=== PATIENT | female | born 1990 | race Caucasian/White ===

== ENCOUNTER → 2023-10-05 13:30 | Outpatient (BNV) | payer MEDICARE, SELFPAY | PROVIDERS: Visit Provider Psychiatry & Neurology Psychiatry | DX: F60.3 Borderline personality disorder (principal); Z86.59 Personal history of other mental and behavioral disorders; F12.20 Cannabis dependence, uncomplicated; F10.10 Alcohol abuse, uncomplicated | CPT/HCPCS: 90792; 99213; 99499 ==

== ENCOUNTER 2023-10-09 13:30 | Outpatient (RCR) | payer MEDICARE, OTHER, SELFPAY ==
[2023-10-02 11:53] VITALS: BP 114/58; PULSE 80; TEMP 37.4
[2023-10-02 11:56] VITALS: BMI 32.4
--- NOTE | 2023-10-02 12:49 | PC.ADMIT ---
Patient is a 33 year old non-binary individual who uses they/them pronouns and goes by the name of, Trupti . Patient was referred to PHP by their PCP d/t increased mood regulation as they have been screaming at work along with punching self d/t feeling overwhelmed with outside stresses including financial stress as their mother recently lost her job. 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 Patient reports poor ADL's with difficulty brushing teeth and taking showers. They are currently taking KADEN from work. Patient is using Marijuana daily smoking 2 grams a day. They are currently drinking wine 2-3 glasses on the weekends. They have a history of detox in 2019 and DUI and license taken away at the time in 2016. Patient given education written and verbal on ETOH use along with short and jail effects and Marijuana use disorder. Patient is alert and oriented x4. They present with depressed mood and anxious/irritable affect. Appears restless and speech is loud at times. The are cooperative. They report they have not been on medications since January 2023. Patient has a history of being on Naltrexone, Duloxetime, Vraylar, and Hydroxyzine. Patient denied SI at present. Reports some self harming thoughts. Last self harmed last week by hitting their wrist. Explored things they could do besides harm self when experiencing strong emotions. Patient was given a copy of their safety plan and I reviewed this with them.
--- NOTE | 2023-10-02 16:11 | HO.PHP ---
Pt left [facility] group early, at roughly 10:50 am, so technical writer and editor checked in to assess how they were doing. Pt was found sitting in the addison tearful and visibly anxious. Pt stated the topic of values was difficult because they did not feel they had hope or found value in anything. Pt stated they have struggled with feeling like this for a long time and worry they will remain like this until I'm 50 . Pt reported feeling some hopelessness due to their current financial and housing situation. Pt was reasonable when supported and did report they want to improve and feel better. With prompting and redirecting pt was able to identify needing to give it more time at [facility] today is pt's first day, Stating they will try harder to engage in the activities despite feeling they will not work. Pt was able to identify goals to work on while at [facility] and coping skills to help with their anxiety and depressive thoughts in the moment. Pt appreciative to talk, returned to group after 25 minutes spent speaking with technical writer and editor.
--- NOTE | 2023-10-02 18:08 | P.HPPSP_ITS ---
HPI Date of Service: 10/02/23 Chief Complaint: bipolar,gender dysphoria,AUD,BPD,PTSD Sources of Information: patient interviewed, chart reviewed and crisis/core team assessment reviewed HPI Narrative: Patient prefers to go by Indigo and they/them pronouns. Patient is a 33 year old non-binary individual with history of anxiety, depression, mood instability, unspecified bipolar disorder, gender dysphoria, alcohol abuse and nursing home reliance on medical marijauna, who was referred to [facility] by crisis at the prompting of their PCP office. They report recent predicament involving family and financial stressors triggering acute distress which is exacerbating long standing issues with mood and behavioral dysregulation, poor stress tolerance in the past month. This has lead to worsening anxiety, mood instability, and an increase in the frequency of mental breakdowns where patient acts out impulsively in a destructive manner. They often engaging in self harming behaviors - punching wall or floor with fists, pounding my wrists and scratching at themselves. They deny this is done intentionally to harm themselves, but rather occurs spontaneously in the moment, due to feeling overwhelmed by high anxiety or strong emotions, or becoming too overstimulated by environmental stimuli or stressors. They report a history of central auditory processing disorder and ADHD diagnosis, received treatment continuously from early elementary school until age 22. They have continued to rely on accommodations to manage social and occupational challenges of navigating the work place. Past Psychiatric History: IP hospitalization in 2018 x 5 days in [facility] in [place], [place] Detox admissions in 2019 in [place], [place] Hx of suicidal behaviors, gestures, SIB (used to cut, in recent years more scratching skin Hx of SI both with and without plans Most recent medication regime included: duloxetine 90 mg, hydroxyzine 25 mg, Vraylar 3 mg, naltrexone 50 mg, IUD. They were last on medication in January 2023. Other trials include Ritalin, Concerta, Prozac and amitriptyline more remotely. Didn't like Lamictal. Therapist: [facility], last seen last month PCP: Dr. Mare Viera at [facility] CURRENT MEDICATIONS: none [facility] Medical History (Updated 10/09/23 @ 21:51 by Monica Stanley MD) Tears of meniscus and ACL of left knee Exercise-induced asthma Family History: Depression, anxiety in family. Younger brother with dissociation issues Father with severe depression Social History: [facility], parents provide financial support. They live in [place]. 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 Reportedly has held many jobs short term (usually <1year). More often she walks off the job because it's not a good fit , interpersonal problems with SVs or coworkers or working conditions or just gets bored Born in [place], [place]. Grew up in [place] with mom, dad younger brother and older half sibling Substance History: Cannabis use: microdosing medical marijuana, everyday, since 2013 about $100 q 2weeks, occasionally binges Alcohol use: 2-3 glasses/wk, occasional binges since age 18. At worse was drinking >100 drinks/wk. Denies black outs or withdrawal sx in the past, although once attended a 28-day detox DUI x1. Hallucinogen use: dappled on occasion, with psylocybin Nicotine use: ~ 1 cigarette/day with marijuana use caffeine use: minimal Trauma History: denies any hx of physical, sexual or emotional abuse, but identifies losing their virginity as a traumatic experience Diagnostics Vital Signs (24Hr): Vital Signs - 24 hr 10/02/23 11:53 Temperature 99.4 F Pulse Rate 80 Blood Pressure 114/58 L BMI result Body Mass Index 32.4 Meds/Allergies Meds Home Medications Medication Instructions Recorded Confirmed Type No Known Home Meds 10/02/23 10/02/23 History Allergies Allergies Allergy/AdvReac Type Severity Reaction Status Date / Time codeine AdvReac Gastrointestinal Verified 10/02/23 11:53 Upset Mental Status Exam Mental Status Exam Narrative: Alert, oriented, in no acute distress. Animated, hyperactive, cooperative, engaged. Eye contact maintained. Mood depressed, affect variable, elevated, bright, moments of incongruency.. Speech loud, normal rate without pressured speech. Thought process linear, scattered, otherwise coherent. Thought content related to stressors, transient hopelessness, endorses passive SI, conditional, without plan or intent. DEnies HI. No paranoia or delusional content elicited. No evidence of psychosis. Insight and judgment impaired. Telehealth Telehealth Location of provider rendering services: other (private office) Location of patient: other ([facility]) Patient Identification confirmed using: Name, : Yes Telehealth method: video Patient verbally consented to treatment: Yes Minutes spent on Phone/Video with Pt.: 30 Assessment & Plan Assessment & Plan (1) Mood disorder: Status: Acute Code(s): F39 - Unspecified mood [affective] disorder (2) Impulsive type emotionally unstable personality disorder: Status: Acute Code(s): F60.3 - Borderline personality disorder (3) History of attention deficit hyperactivity disorder (ADHD): Status: Acute Code(s): Z86.59 - Personal history of other mental and behavioral disorders (4) Other anxiety states: Status: Acute Code(s): F41.1 - Generalized anxiety disorder (5) Alcohol abuse: Status: Acute Code(s): F10.10 - Alcohol abuse, uncomplicated Assessment and Plan: intermittent binging (6) Cannabis dependence with current use: Status: Acute Code(s): F12.20 - Cannabis dependence, uncomplicated Plan Admit to [facility] patient not currently on any medication - hx of poor adherence will continue to explore ways to improve compliance routine lab work slip MassPat reviewed continue to monitor as per protocol Patient educated on: diagnosis, medication risk/benefits and substance abuse Informed Consent: understands Reason for continued partial hosp. stay Substantial Risk for: harm to self, inability to function, rapid decompensation and med/psych decompensation Certification I certify that partial hospital treatment is medically necessary due to the symptoms and problems resulting from the patient's mental illness and the failure to treat the patient at the partial hospital level of care would likely result in the patient requiring inpatient psychiatric care which could not be prevented at a less intensive level of care. Time Spent With Patient Time: Total time managing care of this patient today __60__ minutes.
[2023-10-03 14:29] LABS: Amphetamine Screen Urine Not Detected (Not Detect); Barbiturates, Urine Not Detected (Not Detect); Benzodiazepines Screen Urine Not Detected (Not Detect); Cannabinoid Screen Urine POSITIVE (Not Detect); Cocaine Screen Urine Not Detected (Not Detect); Opiate Screen Urine Not Detected (Not Detect); Phencyclidine Screen Urine Not Detected (Not Detect)
[2023-10-03 14:31] LABS: Fentanyl, urine Not Detected (Not Detect)
--- NOTE | 2023-10-03 16:42 | HO.PHP ---
At roughly 1:20 pt left group and asked to speak with staff 1:1, pt was distraught. Could not exactly identify specific feelings or reasons for shutting down . Pt made vague statement such as feeling sick and tired of being sick and tired . States they do not know why they are here at [facility], firmly stating it won't help. Pt states they feel they will get worse if they stay here because they are triggered when told like, things will get better , and other positive statements. Pt states they are triggered frequently and feel they can not sit through a group. Pt reminded of [facility] group requirements, suggested reconsidering if this program is appropriate for them right at this time but pt refused, stated I'm not leaving , adamant about being here stating they need a proper assessment can not afford learning solutions . Feels they are misdiagnosed and came here because their PCP recommended it so hopes they will get properly diagnosed. Pt encouraged to seek diagnosis with a therapist. Pt reports they do not have one needs a referral for OP provider. Pt reported passive SI, denied a plan and denied intent. Stating they will not act on it, the thoughts are chronic. Pt struggled to identify coping skills, did report they use fidgets all day to distract from thoughts as the major coping skills they use. Pt not open to further discussion on coping skills, but did calm, agreed to return to the group in session and states they will be back tomorrow.
--- NOTE | 2023-10-05 16:26 | PHP/IOPCOSI ---
María' (aka Indigo)?treatment plan was reviewed by the [facility] clinical staff. Their case has been opened and reviewed.?
--- NOTE | 2023-10-05 16:50 | HO.PHP ---
vadim Dickson Trupti met individually with a [facility] staff member to review their treatment plan and concerns that they had raised about enrollment in the program. Indigo noted that they did not agree with their diagnoses or their treatment goals, stating that they did not wish to change their current patterns of drug and alcohol use. They further noted that they were experiencing challenges being present within group therapy sessions as they become easily emotionally dysregulated and need to take frequent breaks. They noted that they have been experiencing difficultly following group content due to their levels of attendance and engagement. After reviewing their treatment plan, identifying Indigos current goals for treatment, and providing psychoeducation regarding levels of care, Indigo noted that they would like to discharge from the [facility] in order to attend another program. Staff recommended both respite and a DBT treatment program which Curtiso strongly declined. They noted that they wanted a referral to a virtual IOP to continue their treatment. Curtiso and staff worked collaboratively to identify a program that would best meet their treatment needs and Curtiso agreed to a referral to [facility] services for their IOP, in addition to ongoing case management and therapy/psychiatry services. Trupti will discharge from the program tomorrow 10/06/2023.
--- NOTE | 2023-10-05 17:05 | HO.PHP ---
A referral was submitted to [facility] services for their IOP, as well as ongoing outpatient therapy and psychiatry services via their online portal.
--- NOTE | 2023-10-06 23:57 | PM.EVENT ---
Event Note Date of Service: 10/07/23 Event Note: Patient was scheduled to meet with this provider however patient called out from program today. Time Spent With Patient Time: Total time managing care of this patient today ____ minutes.
--- NOTE | 2023-10-09 21:47 | HO.PHPPROGNO ---
Subjective Subjective Date of Service: 10/09/23 Reason For Visit: bipolar,gender dysphoria,AUD,BPD,PTSD Interim History: Patient reports they are doing okay . PLan is to be discharged today. They spoke with [facility] staff about this not being a good fit, and is needing something more intensive and more one-on-one work . They say they will be attending [facility] in [place], it's less group-oriented, lasts 15-30 days online. No acute issues or concerns today. Reports mood as fine . Denies any hopelessness or SI. Denies any thoughts of harming self or others. Attending Groups: Intermittent Review of Systems Acute medical concerns: No Mental Status Exam Mental Status Exam Narrative: Alert, oriented, in no acute distress. Animated, hyperactive, cooperative, engaged. Eye contact maintained. Mood irritable, affect variable, elevated, bright, moments of incongruency.. Speech loud, normal rate without pressured speech. Thought process linear, scattered, otherwise coherent. Thought content related to stressors, transient hopelessness, endorses passive SI, conditional, without plan or intent. DEnies HI. No paranoia or delusional content elicited. No evidence of psychosis. Insight and judgment impaired. Diagnostics Vital Signs (24Hr): BMI result Body Mass Index 32.4 Assessment & Plan Assessment & Plan (1) Emotionally unstable borderline personality disorder: Status: Acute Code(s): F60.3 - Borderline personality disorder (2) History of attention deficit hyperactivity disorder (ADHD): Status: Acute Code(s): Z86.59 - Personal history of other mental and behavioral disorders (3) Cannabis dependence with current use: Status: Acute Code(s): F12.20 - Cannabis dependence, uncomplicated (4) Alcohol abuse: Status: Acute Code(s): F10.10 - Alcohol abuse, uncomplicated Plan Discharge from [facility] referred for intensive outpatient treatment Patient educated on: diagnosis, medication risk/benefits, substance abuse and therapeutic strategies Guardian/Caregiver educated on: diagnosis, medication risk/benefits and substance abuse Informed Consent: understands Reason for contiued partial hosp. stay Substantial Risk for: stable for discharge Certification I certify that partial hospital treatment is medically necessary due to the symptoms and problems resulting from the patient's mental illness and the failure to treat the patient at the partial hospital level of care would likely result in the patient requiring inpatient psychiatric care which could not be prevented at a less intensive level of care. Total time managing care of this patient today __30__ minutes. Discharge Plan Discharge Attending provider: Monica Stanley Medications: No Action No Known Home Meds Stand Alone Forms: Patient Portal Discharge page Patient Education: Mood Disorders (DC)
== END 2023-10-09 23:59 | disposition home or self-care (01) ==
LOC: HO.PHPA 13:30
PROVIDERS: Visit Provider Psychiatry & Neurology Psychiatry
DX: F60.3 Borderline personality disorder (principal); F39 Unspecified mood [affective] disorder; F41.1 Generalized anxiety disorder; F10.10 Alcohol abuse, uncomplicated; F12.20 Cannabis dependence, uncomplicated; Z86.59 Personal history of other mental and behavioral disorders
CPT/HCPCS: 80307; 90791; 90853